=== PATIENT | female | born 1940 | race Caucasian/White ===

== ENCOUNTER → 2019-08-17 11:30 | Outpatient (POV) | payer MEDICARE, OTHER, SELFPAY ==
[2019-08-17 12:00] VITALS: BP 126/70; PULSE 73; RESP 18; O2SAT 98; BMI 23.4
--- NOTE | 2019-08-17 12:33 | HMH.PMCON ---
Assessment and Plan (1) Compression fracture Current visit: Yes Status: Chronic Category: Medical - Assessment and plan all Dx Assessment and Plan for all problems:: My recommendation would be to obtain an MRI to see if this compression fracture is fixable. If it is we will move forward with a kyphoplasty at the L2 level. Patient does have osteopenia, osteoporosis. Patient will be given a back brace after her MRI. I would recommend increasing the patient's [place] to 4 times a day until she has her kyphoplasty. Dr. Garcia has reviewed this note and agrees with this plan of care. This note was dictated using voice recognition software and may contain errors or omissions HPI - Data of Consult Consult date: 08/17/19 Requesting Physician: Benita Copeland APRN Primary Care Provider: Chad Costa MD - Consult Narrative Reason for consult: Back pain History of present illness: Ms. Hirsch is a 79 year old female who presents today for consultation regards to her back pain. Patient states that several months ago that she was fully functional and had no issues compared to what she is functioning at now. She is currently in a long-term. She has back pain that goes down into her lower spine and up into her upper spine with some radiation. Patient has some imaging showing a L2 compression fracture with 50% decreased height and vertebrae. Patient does not have an updated MRI we discussed back brace, updated MRI and potential kyphoplasty she would like to move forward with this. She is not on any anticoagulation therapy. She rates her pain today at 10 out of 10 CC: Benita Copeland APRN [facility] History I have reviewed the patient's past medical history: Yes *Have you ever received a pneumonia vaccine?: Yes *Have you received a flu vaccine this season?: Yes Other Medical History: Reports: Hypothyroidism - *Social History Smoking Status: Never smoker Alcohol Intake: never *Occupational Status:: other Housing: house Household Members: other *Travel in the last 8 weeks: None Family Hx:: Unable to obtain Review of Systems - Review of Systems ROS General: no recent weight change, no fever, no sleep disturbances Respiratory: no cough, no shortness of air, no recurring pulmonary infections Cardiovascular/Peripheral Vascular: No chest pain, No palpitations, no edema, no shortness of breath. Gastrointestinal: no new onset incontinence, normal bowel movements reported Genitourinary: no new onset incontinence Musculoskeletal: Back pain Psychiatric: normal mood/ affect Neurological: [denies new onset weakness in extremities], [denies new onset balance issues] Meds Allergies Allergy/AdvReac Type Severity Reaction Status Date / Time atorvastatin [From Lipitor] Allergy Intermediate SWELLING Unverified 07/29/17 14:21 methocarbamol [From Robaxin] Allergy Mild BREAKOUT Unverified 07/29/17 14:21 Sulfa (Sulfonamide Allergy Mild BREAKOUT Unverified 07/29/17 14:21 Antibiotics) Objective Vital signs: Pulse Resp BP Pulse Ox 73 18 126/70 98 08/17/19 12:00 08/17/19 12:00 08/17/19 12:00 08/17/19 12:00 Narrative: Physical Exam General: Alert and oriented x3, no acute distress, pleasant and cooperative, [on room air] Lungs: Resps E/U, Symmetrical chest expansion, Eyes: PERRL Musculoskeletal: Flexion and extension of lumbar spine somewhat guarded secondary to pain, deep tendon reflexes normal, strength in upper and lower extremities [5/5], [abnormal gait noted] Neurological: speech clear, clin nurse spec equal, no gross sensory deficits Opioid Risk Tool - Opioid Risk Tool-Female Family hx alcohol abuse: N Family hx illegal drugs: N Family hx rx drug abuse: N Personal hx alcohol abuse: N Personal hx illegal drugs: N Personal hx rx drug abuse: N Age: 45+ Hx of sexual abuse: N Mental health issues-ADD,OCD,Bipolar, etc: N Hx of depression: N Female Risk Score: 0
== END ==
PROVIDERS: PCP Internal Medicine Adolescent Medicine; Visit Provider Clinical Nurse Specialist Family Health
DX: M80.88XA Other osteoporosis with current pathological fracture, vertebra(e), initial encounter for fracture (principal); M85.80 Other specified disorders of bone density and structure, unspecified site
CPT/HCPCS: 99202

== ENCOUNTER → 2019-08-20 12:45 | Outpatient (CLI) | payer MEDICARE, OTHER, SELFPAY ==
--- NOTE | 2019-08-20 12:48 | MR_ITS ---
PROCEDURE: MR LUMBAR SPINE WO CON CLINICAL INDICATION: BACK PAIN The back pain, stiffness and back, unable to walk and stand COMPARISON: No exams were available for comparison TECHNIQUE: Standard multiplanar multiecho sequences are performed without contrast. 3-D MIP and myelographic images are also rendered and reviewed FINDINGS: There is normal alignment. The spinal cord ends at the T12-L1 level. There is multilevel degenerative disc disease. T10-T11: Mild degenerative disc disease. T11-T12: Mild degenerative disc disease. T12-L1: Mild degenerative disc disease. L1-L2: There is mild wedging of the central and anterior aspect of L2 with loss of height of approximately 30-40 percent. This however does appear old. L2-L3: Mild bulging disc. There is mild compression of the superior endplate of L3 with loss of height centrally of approximately 25 percent with increased T2 signal along the superior endplate and mild retropulsion of the posterior superior aspect of the L3 vertebral body by approximately 4 mm. There is mild bilateral foraminal narrowing. No canal stenosis or neural impingement. L3-L4: Nonspecific increased T2 signal is present within the L3-L4 disc suggesting underlying edema. There is mild compression change along the superior endplate of L4 which appears acute with bone marrow edema along the superior endplate of L4 and minimal retrolisthesis of the posterior superior aspect of L4 by approximately 2-3 mm. No impingement. There is mild left foraminal narrowing L4-5: Degenerative disc disease. L5-S1: Degenerate disc disease with mild bulging of the disc and mild right foraminal narrowing. Incidental note is made of small bilateral renal cysts. No extruded herniated disc is evident. IMPRESSION: Abnormal MRI of the lumbar spine. There is multilevel degenerative disc disease with bulging disc along with facet ligamentum hypertrophy.. There is mild chronic compression change at L2 and mild acute compression changes of the L3 and L4 vertebral body superiorly with mild retropulsion of the posterior superior aspect of L3 of 4 mm and L2 of 2-3 mm. Please see above for detailed description at each level Dictated by: Roger Stinson MD 08/22/2019 10:29 Electronically signed by Roger Stinson MD in [place] 08/22/2019 10:29
== END ==
PROVIDERS: PCP Internal Medicine Adolescent Medicine; Visit Provider Clinical Nurse Specialist Family Health
DX: M54.5 Low back pain (principal)
CPT/HCPCS: 72148; 76376

== ENCOUNTER → 2019-09-13 12:58 | Outpatient (POV) | payer MEDICARE, MEDICAID, OTHER, SELFPAY ==
[2019-09-13 13:15] VITALS: BP 134/74; PULSE 64; RESP 18; O2SAT 99; BMI 23.4
--- NOTE | 2019-09-13 13:39 | HMH.PAINSOAP ---
[facility] Pain Management SOAP Note Subjective:: Patient is a pleasant 79-year-old white female who presents today for follow-up after an L3 and L4 balloon kyphoplasty. Patient rates her pain a 10 out of 10 in her lower back and in her legs. She is been to the emergency room secondary to pain however she does not seem to get much relief with oral narcotics. Patient had a long discussion about intrathecal therapy she is interested in pursuing this. I do believe a bupivacaine pump may be beneficial for her given her advanced age. We will set her up for a trial. Patient questions were answered. We will set her up for a intrathecal pain pump trial. She rates her pain a 10 out of 10 ROS General: no recent weight change, no fever, no sleep disturbances Respiratory: no cough, no shortness of air, no recurring pulmonary infections Cardiovascular/Peripheral Vascular: No chest pain, No palpitations, no edema, no shortness of breath. Gastrointestinal: no new onset incontinence, normal bowel movements reported Genitourinary: no new onset incontinence Musculoskeletal: Back pain, leg pain Psychiatric: normal mood/ affect, Neurological: [denies new onset weakness in extremities], [denies new onset balance issues] Objective:: Physical Exam General: Alert and oriented x3, no acute distress, pleasant and cooperative, [on room air] Lungs: Resps E/U, Symmetrical chest expansion, Eyes: PERRL Musculoskeletal: Flexion and extension of lumbar spine somewhat guarded secondary to pain, deep tendon reflexes normal, strength in upper and lower extremities [5/5], [abnormal gait noted] Neurological: speech clear, flight communications operator equal, no gross sensory deficits Assessment:: Compression fractures, status post kyphoplasty, low back pain, degenerative changes, osteoporosis, hip pain Plan:: Patient is got no relief from either her kyphoplasty nor her an injection therapy. Patient I discussed an intrathecal pain pump trial with bupivacaine she would like to move forward with this. She rates her pain a 10 out of 10. She is not on any anticoagulation therapy. I will follow-up with her after her trial reassess her symptoms at that time she has been instructed to call the office if she has any issues prior to her next appointment. Dr. Garcia has reviewed this note and agrees with this plan of care. This note was dictated using voice recognition software and may contain errors or omissions [facility] History I have reviewed the patient's past medical history: Yes Medical History: Reports:: Anxiety, Asthma, Dementia, Gastroesophageal Reflux Disease(GERD), Hyperlipidemia, Hypertension Denies:: Cancer, Diabetes Mellitus Type 1, Diabetes Mellitus Type 2, Internal Pacemaker, MRSA, Seizures *Have you ever received a pneumonia vaccine?: Yes *Have you received a flu vaccine this season?: Yes Other Medical History: Reports: Hypothyroidism. Denies: Blood Transfusion Reaction Laterality Cases: Bilateral: Tonsillectomy Other Surgeries: Yes: Hysterectomy-Total, Sinus Surgery, Other. No: Pacemaker Amputation: No Fractures: Yes (wrist, shoulder, neck) - *Social History Smoking Status: Never smoker Alcohol Intake: never Substance Use Type: denies use *Occupational Status:: other Housing: assisted living facility Household Members: other *Travel in the last 8 weeks: None - Psychiatric History Pschychiatric History:: Reports:: Anxiety Family Hx:: Cancer, Diabetes, Hyperlipidemia, Hypertension
== END ==
PROVIDERS: PCP Internal Medicine Adolescent Medicine; Visit Provider Clinical Nurse Specialist Family Health
DX: M80.88XA Other osteoporosis with current pathological fracture, vertebra(e), initial encounter for fracture (principal); M85.80 Other specified disorders of bone density and structure, unspecified site; M54.5 Low back pain; M25.559 Pain in unspecified hip; M19.90 Unspecified osteoarthritis, unspecified site; Z98.890 Other specified postprocedural states
CPT/HCPCS: 99212

== ENCOUNTER → 2019-10-07 09:54 | Outpatient (POV) | payer MEDICARE, MEDICAID, OTHER, SELFPAY ==
[2019-10-07 10:47] VITALS: BP 140/51; PULSE 72; RESP 18; O2SAT 98; BMI 21.4
--- NOTE | 2019-10-07 10:57 | P.CONS_ITS ---
[facility] Pain Management SOAP Note Subjective:: Patient is a pleasant 79-year-old white female who presents today for follow-up after intrathecal pain pump placement. She is being treated for degenerative disc disease lumbar spine with multiple compression fractures. Patient rates her pain a 4 out of 10 today. She says she is doing well overall since having her intrathecal pump placed. She denies any side effects to the medications. She says that she feels better than she has in years with regards to pain. She is currently on bupivacaine at 2.5 mg/day. Patient says that she is having some incisional pain, however, expect that to reside over the next few weeks. Review of Systems General: No recent weight changes, no fever, no sleep disturbances Respiratory: No cough, no shortness of air, no recurring pulmonary infections Cardiovascular/peripheral vascular: No chest pain, no palpitations, no edema, no shortness of breath Gastrointestinal: No new onset incontinence, normal bowel movements reported Genitourinary: No new onset incontinence Musculoskeletal: Low back pain Psychiatric: Normal mood/affect Neurological: [Denies weakness in extremities], [denies balance issues] Objective:: Physical exam General: Alert and oriented x3, no acute distress, pleasant and cooperative, [on room air] Lungs: Respirations even and unlabored, symmetrical chest expansion Eyes: PERRL Musculoskeletal: Flexion and extension of lumbar spine somewhat guarded secondary to pain, deep tendon reflexes normal, strength in upper and lower extremities [5/5], [abnormal gait noted] Neurological: Speech clear, internal medicine doctor equal, no gross sensory deficit Assessment:: Degenerative disc disease lumbar spine with lumbar radiculopathy symptoms, multiple compression fractures Plan:: We will see the patient back in the clinic in 2 weeks to reassess her symptoms. Overall, her incision looks good. She does not have any redness, edema, or drainage noted to site. Her sutures are we will see her back in the clinic in 2 weeks to reassess her symptoms and remove her sutures. Patient's Lázaro #[id number] has been reviewed and is appropriate. Her urine drug screens are appropriate. Patient's morphine equivalent is 0. [facility] History I have reviewed the patient's past medical history: Yes Medical History: Reports:: Anxiety, Asthma, Dementia, Gastroesophageal Reflux Disease(GERD), Hyperlipidemia, Hypertension Denies:: Cancer, Diabetes Mellitus Type 1, Diabetes Mellitus Type 2, Internal Pacemaker, MRSA, Seizures *Have you ever received a pneumonia vaccine?: Yes *Have you received a flu vaccine this season?: Yes Other Medical History: Reports: Hypothyroidism. Denies: Blood Transfusion Reaction Laterality Cases: Bilateral: Tonsillectomy Other Surgeries: Yes: Hysterectomy-Total, Sinus Surgery, Other (kyphoplasty). No: Pacemaker Amputation: No Fractures: Yes (wrist, shoulder, neck) - *Social History Smoking Status: Never smoker Alcohol Intake: never Substance Use Type: denies use *Occupational Status:: other Housing: shelter Household Members: children *Travel in the last 8 weeks: None - Psychiatric History Pschychiatric History:: Reports:: Anxiety Family Hx:: Cancer, Diabetes, Hyperlipidemia, Hypertension
== END ==
PROVIDERS: PCP Internal Medicine Adolescent Medicine; Visit Provider Clinical Nurse Specialist Family Health
DX: M51.16 Intervertebral disc disorders with radiculopathy, lumbar region (principal); M80.88XA Other osteoporosis with current pathological fracture, vertebra(e), initial encounter for fracture
CPT/HCPCS: 99212

== ENCOUNTER → 2019-10-29 12:13 | Outpatient (CLI) | payer MEDICARE, MEDICAID, OTHER, SELFPAY ==
--- NOTE | 2019-10-29 12:23 | XR_ITS ---
PROCEDURE: XR MULTIPLE SPINE 6+V CLINICAL INDICATION: BACK PAIN COMPARISON: CT LUMBAR SPINE WO CON from 09/12/2019 FINDINGS: Thoracic spine: Generalized osteopenia with minimal upper thoracic curvature convex right. No acute fracture or dislocation evident. Lumbar spine: Severe generalized osteopenia with mild lumbar curvature convex left. There has been prior vertebroplasty at L3 and L4. Epidural pain pump is present with the catheter at the T12 level. Compression deformities involve L4 L3 and L2. These were present on the previous exam of 09/12/2019 but may be slightly greater at L2 on today's exam. IMPRESSION: 1. Severe osteopenia. 2. Compression deformities of L2-L3 and L4. The wedge compression of L2 may be slightly greater compared to 09/12/2019. 3. Prior kyphoplasty at L3 and L4 Dictated by: Roger Stinson MD 10/29/2019 13:04 Electronically signed by Roger Stinson MD in [place] 10/29/2019 13:04
== END ==
PROVIDERS: PCP Internal Medicine Adolescent Medicine; Visit Provider Anesthesiology
DX: M51.36 Other intervertebral disc degeneration, lumbar region (principal)
CPT/HCPCS: 72084

== ENCOUNTER → 2019-11-02 11:29 | Outpatient (POV) | payer MEDICARE, OTHER, MEDICAID, SELFPAY ==
[2019-11-02 11:45] VITALS: BP 146/91; PULSE 79; RESP 18; O2SAT 99; BMI 25.7
--- NOTE | 2019-11-02 12:47 | P.PCN_ITS ---
- Procedure Date: 11/02/19 Time: 12:47 Anesthesiologist:: Benita Copeland APRN Complications:: None Pre-procedure Diagnosis:: Degenerative disc disease lumbar spine with lumbar radiculopathy compression fracture lumbar spine status post kyphoplasty Post-procedure Diagnosis:: Same Indications for Procedure:: Patient is a very pleasant 79-year-old white female who presents today for fo llow-up. Patient has a worsening compression fracture at L2. Her last visit she came in and we switch her to periodic flow and she did well for a day and a half. Patient has had increased pain with her bupivacaine since we have increased it from 2.5 mg a day. Patient is not getting much relief from her pain pump. She is unable to tolerate bracing. [facility] and this is beneficial. She has small superficial infection of her incisional line. This looks much improved today. She is continuing doxycycline. She rated her pain a 10 out of 10 when she arrived however she was given a bolus of 1.5 mg of bupivacaine. Her blood pressure dropped she became quite dizzy during this time she had no pain however she states that this is been happening frequently to her since she had her pain pump placed. We discussed removing the bupivacaine and turning her down today. Physical Exam General: Alert and oriented x3, no acute distress, pleasant and cooperative, [on room air] Lungs: Resps E/U, Symmetrical chest expansion, Eyes: PERRL Musculoskeletal: Flexion and extension of lumbar spine somewhat guarded secondary to pain, deep tendon reflexes normal, strength in upper and lower extremities [5/5], [abnormal gait noted] Neurological: speech clear, slice cutting machine operator equal, no gross sensory deficits Procedure Details:: Informed consent was obtained and the risk and benefits of the procedure were explained to the patient. The patient was taken to the procedure room where noninvasive monitoring was placed including noninvasive blood pressure cuff and pulse oximeter. Patient's pump was interrogated and reprogrammed. The infusion rate was changed to a constant flow of 2.5 mg of bupivacaine today. The patient tolerated the procedure well. Plan and Disposition:: We will see her back in Friday and change her medicine to Dilaudid 1 mg/mL and start 0.1 mg/day she is been instructed to call the office if she has any issues prior to her next appointment. Dr. Garcia has reviewed this note and agrees with this plan of care. This note was dictated using voice recognition software and may contain errors or omissions
== END ==
PROVIDERS: PCP Internal Medicine Adolescent Medicine; Visit Provider Clinical Nurse Specialist Family Health
DX: M51.16 Intervertebral disc disorders with radiculopathy, lumbar region (principal); M48.56XA Collapsed vertebra, not elsewhere classified, lumbar region, initial encounter for fracture; I95.9 Hypotension, unspecified
CPT/HCPCS: 62368

== ENCOUNTER 2020-01-04 13:32 | Day surgery (SDC) | payer MEDICARE, OTHER, MEDICAID, SELFPAY ==
[2020-01-04 13:45] VITALS: BP 107/70; PULSE 90; RESP 18; TEMP 36.6; O2SAT 95; BMI 22.6
[2020-01-04 14:37] VITALS: BP 110/71; PULSE 99; RESP 18
[2020-01-04 14:38] VITALS: BP 112/75; PULSE 75; RESP 18; O2SAT 98
[2020-01-04 14:45] VITALS: BP 122/64; PULSE 90; RESP 18; O2SAT 95
--- NOTE | 2020-01-04 15:05 | HMH.PMPROC ---
- Procedure Date: 01/04/20 Time: 15:05 Anesthesiologist:: Benita Copeland APRN Complications:: None Pre-procedure Diagnosis:: Degenerative disc disease lumbar spine lumbar radiculopathy, compression fracture lumbar spine status post kyphoplasty acute lumbar fracture L3-L4 Post-procedure Diagnosis:: Same Indications for Procedure:: Patient is a very pleasant 79-year-old white female who presents today for intrathecal pain pump refill and reprogram. She rates her pain a 10 out of 10. She is currently on Percocet. She was unable to come to get her adjustments once she started on her Dilaudid versus bupivacaine due to the [place] crisis. We will change her out today and double her current daily dose. [facility] #[id number] reviewed. Physical Exam General: Alert and oriented x3, no acute distress, pleasant and cooperative, [on room air] Lungs: Resps E/U, Symmetrical chest expansion, Eyes: PERRL Musculoskeletal: Flexion and extension of lumbar spine somewhat guarded secondary to pain, deep tendon reflexes normal, strength in upper and lower extremities [5/5], [abnormal gait noted] Neurological: speech clear, quality control auditor equal, no gross sensory deficits Procedure Details:: Informed consent was obtained and the risk and benefits of the procedure were explained to the patient. The patient was taken to the procedure room where noninvasive monitoring was placed including noninvasive blood pressure cuff and pulse oximeter. Patient's pump was interrogated. The area over the pump was cleansed with chlorhexidine as a cleansing solution. In sterile fashion the pump was accessed with a 22-gauge needle. Approximately 13 mL's were removed of the pump solution and discarded appropriately. The pump was then refilled with 20 mL's of hydromorphone 1 mg/mL. The needle was withdrawn and a bandage was placed over the puncture site. The infusion rate was reprogrammed to 0.2 mg/day. The patient tolerated the procedure well. Plan and Disposition:: We will see the patient back in the office in 2 weeks reassess her symptoms at that time and increase her by 100% until she gets pain relief. Dr. Garcia has reviewed this note and agrees with this plan of care. This note was dictated using voice recognition software and may contain errors or omissions
== END 2020-01-04 14:45 | disposition home or self-care (01) ==
LOC: SC.PAINP 13:34
PROVIDERS: PCP Internal Medicine Adolescent Medicine; Visit Provider Clinical Nurse Specialist Family Health
DX: M51.16 Intervertebral disc disorders with radiculopathy, lumbar region (principal); M80.88XA Other osteoporosis with current pathological fracture, vertebra(e), initial encounter for fracture; Z98.890 Other specified postprocedural states; M84.48XA Pathological fracture, other site, initial encounter for fracture; Z97.8 Presence of other specified devices; E78.5 Hyperlipidemia, unspecified; J45.909 Unspecified asthma, uncomplicated; F41.9 Anxiety disorder, unspecified; F32.9 Major depressive disorder, single episode, unspecified; Z87.09 Personal history of other diseases of the respiratory system; Z87.39 Personal history of other diseases of the musculoskeletal system and connective tissue; Z90.710 Acquired absence of both cervix and uterus
CPT/HCPCS: 62370

== ENCOUNTER 2020-01-14 11:12 | Day surgery (SDC) | payer MEDICARE, OTHER, MEDICAID, SELFPAY ==
--- NOTE | 2020-01-14 11:18 | HMH.PMPROC ---
- Procedure Date: 01/14/20 Time: 11:18 Anesthesiologist:: Gary Garcia MD Complications:: None Pre-procedure Diagnosis:: Sacroiliitis Post-procedure Diagnosis:: Same Indications for Procedure:: This patient is a pleasant 79-year-old white female who we have been treating for low back pain with multiple compression fractures throughout the lumbar spine. She does have an intrathecal Dilaudid pain pump in place. She is currently going to 0.2 mg/day. She is in a care facility but is also monitoring her pain symptoms and giving her Percocet 3 times a day. None of this seems to be helping. She did not get any benefit from her intrathecal Dilaudid pain pump increase at her last visit where she went from 0.1 to 0.2 mg/day. Most of her pain is in the low back. She is tender over both SI joints. She is also tender over both trochanteric bursa's. I believe she would benefit from bilateral SI joint injections and in the future bilateral trochanteric bursa injections. We will do bilateral SI joint injections under fluoroscopy today. She has a positive SI joint compression test. She has a positive Sherrill's test bilaterally. She has a positive Ana Cristina test bilaterally. Procedure Details:: B/L SI joint injection under fluoroscopy Informed consent was obtained and the risks and benefits of the procedure was explained to the patient. The patient was taken to the procedure room and placed prone on the procedure table. The patient was prepped using ChloraPrep. The skin and subcutaneous tissues overlying the SI joints were anesthetized using lidocaine. I placed a 22-gauge needle first in the left SI joint and second in the right SI joint. Needle placement was confirmed with dye. After this we injected 5 mL bupivacaine 0.25% and Depo-Medrol 40 mg into each SI joint. Patient tolerated the procedure well with no complication. Plan and Disposition:: We will follow-up with her in 1 to 2 weeks. We will plan on bilateral trochanteric bursa injections under fluoroscopy. We will continue her intrathecal pain pump at 0.2 mg/day. They can continue to monitor her pain and give her Percocet as needed.
[2020-01-14 11:22] VITALS: BP 116/69; PULSE 78; RESP 18; O2SAT 91; BMI 22.3
[2020-01-14 11:50] VITALS: BP 118/65; BP 120/78; PULSE 85; PULSE 88; RESP 18; O2SAT 97; O2SAT 98
[2020-01-14 12:00] VITALS: BP 129/76; PULSE 82; RESP 20; O2SAT 96
== END 2020-01-14 12:00 | disposition home or self-care (01) ==
LOC: SC.PAIN 11:16
PROVIDERS: Visit Provider Anesthesiology
DX: M46.1 Sacroiliitis, not elsewhere classified (principal)
CPT/HCPCS: 27096; G0260; J1030; Q9966

== ENCOUNTER → 2020-02-04 12:56 | Day surgery (SDC) | payer MEDICARE, OTHER, MEDICAID, SELFPAY ==
[2020-02-04 13:27] VITALS: BP 111/78; PULSE 80; RESP 16; TEMP 36.1; O2SAT 92; BMI 22.6
--- NOTE | 2020-02-04 13:42 | HMH.PMPROC ---
- Procedure Date: 02/04/20 Time: 13:42 Anesthesiologist:: Gary Garcia MD Complications:: None Pre-procedure Diagnosis:: Bilateral trochanteric bursitis Post-procedure Diagnosis:: Same Indications for Procedure:: Patient is a pleasant 79-year-old white female who we are treating for low back pain and compression fractures throughout the lumbar spine. She does have pain over both hips. She is tender over both trochanteric bursa's. We will do bilateral trochanteric bursa injection today to see if this will help with her pain symptoms. She did recently have bilateral SI joint injections which have helped. Procedure Details:: My bilateral trochanteric bursa injection Informed consent was obtained and the risk and benefits of the procedure was explained to the patient. The patient was taken to the procedure room and placed prone on the procedure table. Both hips were prepped using ChloraPrep. The skin and subcutaneous tissues were anesthetized using lidocaine. A 22-gauge spinal needle was inserted and advanced into the greater trochanter on the left side. Needle placement was confirmed with dye. We then injected 5 mL bupivacaine 0.25% Depo-Medrol 40 mg into the left trochanteric bursa. The same was done for the right side. A 22-gauge spinal needle was inserted and advanced into the greater trochanter on the right side. Needle placement was confirmed with dye. We then injected 5 mL bupivacaine 0.25% Depo-Medrol 40 mg into the right trochanteric bursa. Patient tolerated the procedure well with no complications. Plan and Disposition:: She is having increasing pain over her right hip. On fluoroscopic x-ray there does appear to be a possible fracture. We will send for hip x-rays in particular of the right hip to rule out right hip fracture. This is where most of her pain is coming from.
[2020-02-04 13:50] VITALS: BP 132/85; PULSE 79; RESP 18
[2020-02-04 13:51] VITALS: BP 140/78; PULSE 85; RESP 18; O2SAT 99
--- NOTE | 2020-02-04 14:13 | XR_ITS ---
PROCEDURE: XR HIP RT 2-3V W/PELVIS CLINICAL INDICATION: questionable fracture COMPARISON: XR HIP RT 2-3V W/PELVIS from 08/27/2019 FINDINGS: No fracture or dislocation is evident. No significant degenerative change. No lytic or blastic change. Unremarkable soft tissues.Left lower quadrant generator and bilateral L5 kyphoplasty is noted. There are dense vascular calcifications IMPRESSION: No fracture Note: If a subtle fracture suspected an MR scan recommended. Dictated by: Augusto Middleton 02/04/2020 15:25 Electronically signed by Augusto Middleton in [place] 02/04/2020 15:25
[2020-02-04 14:20] VITALS: BP 137/79; PULSE 78; RESP 18; TEMP 35.8; O2SAT 92
== END ==
PROVIDERS: PCP Internal Medicine Adolescent Medicine; Visit Provider Anesthesiology
DX: M70.61 Trochanteric bursitis, right hip (principal); M70.62 Trochanteric bursitis, left hip; I10 Essential (primary) hypertension; M81.0 Age-related osteoporosis without current pathological fracture; E78.5 Hyperlipidemia, unspecified; J44.9 Chronic obstructive pulmonary disease, unspecified; Z87.448 Personal history of other diseases of urinary system; F41.9 Anxiety disorder, unspecified; F32.9 Major depressive disorder, single episode, unspecified; Z90.89 Acquired absence of other organs; Z90.710 Acquired absence of both cervix and uterus; Z83.3 Family history of diabetes mellitus
CPT/HCPCS: 20610; 73502; 77002; J1030; Q9966

== ENCOUNTER → 2020-02-24 11:39 | Outpatient (POV) | payer MEDICARE, OTHER, MEDICAID, SELFPAY ==
[2020-02-24 11:58] VITALS: BP 129/61; PULSE 81; RESP 18; O2SAT 98; BMI 22.8
--- NOTE | 2020-02-24 12:37 | P.PCN_ITS ---
- Procedure Date: 02/24/20 Time: 12:38 Anesthesiologist:: Mallika Oliver APRN Complications:: None Pre-procedure Diagnosis:: Degenerative disc disease lumbar spine with lumbar radiculopathy symptoms, bilateral trochanteric bursitis Post-procedure Diagnosis:: Same Indications for Procedure:: Patient is a pleasant 80-year-old white female who presents today for follow-up after bilateral trochanteric bursa injections. Patient continues to have low back pain. She does say the injections did give her relief in her bilateral hips, however, she is continuing to have low back pain. She does have an intrathecal pain pump with Dilaudid at 0.2 mg/day. She would like an increase in her dose today. The patient's rating her pain today a 7 out of 10. Her urine drug screens have been appropriate. Her morphine equivalent is 0. Her Lázaro #[id number] has been reviewed and is appropriate. We will increase her today to see if she gets relief. Physical exam General: Alert and oriented x3, no acute distress, pleasant and cooperative, [on room air] Lungs: Respirations even and unlabored, symmetrical chest expansion Eyes: PERRL Musculoskeletal: Flexion and extension of lumbar spine somewhat guarded secondary to pain, deep tendon reflexes normal, strength in upper and lower extremities [5/5], [abnormal gait noted] Neurological: Speech clear, privacy analyst equal, no gross sensory deficit Procedure Details:: Informed consent was obtained and the risk and benefits of the procedure were explained to the patient. Patient was taken to the procedure room where noninvasive monitoring was placed including noninvasive blood pressure cuff and pulse oximeter. Patient's pump was interrogated and was reprogrammed to Dilaudid at 0.26 mg/day. The patient tolerated the procedure well with no complications. Plan and Disposition:: Patient was given a bolus of 0.025 mg while in the clinic. She tolerated the bolus without any problems. She was given additional bolus of 0.025 mg. She was increased to 0.26 mg/day with Dilaudid. We will plan to see the patient back in the clinic in 2 weeks to reassess her symptoms. If the patient is doing well at that time she can return at her refill date. She has been instructed to contact the clinic if she has any concerns before next appointment. The patient and I specifically discussed risk factors for COVID19. These risks include, but are not limited to age greater than 60, heart or lung disease, diabetes, immunosuppression, and travel. We also discussed NSAIDs may worsen COVID19 infection or symptoms. Patient should not use NSAIDs to treat COVID19 signs or symptoms. Patient was also informed that any type of corticosteroid of any form (oral or injection) will decrease the patient's immune system response and may increase the likelihood of COVID19 infection and symptoms[address] Dr. Garcia has reviewed this note and agrees with this plan of care. This note was dictated using voice recognition software and make contain errors or omissions.
== END ==
PROVIDERS: PCP Internal Medicine Adolescent Medicine; Visit Provider Clinical Nurse Specialist Family Health
DX: M51.16 Intervertebral disc disorders with radiculopathy, lumbar region (principal); M70.62 Trochanteric bursitis, left hip; M70.61 Trochanteric bursitis, right hip
CPT/HCPCS: 62368

== ENCOUNTER 2020-03-24 12:23 | Day surgery (SDC) | payer MEDICARE, OTHER, MEDICAID, SELFPAY ==
[2020-03-24 12:34] VITALS: BP 113/71; PULSE 85; RESP 18; TEMP 36.6; O2SAT 82; BMI 22.1
[2020-03-24 13:25] VITALS: BP 127/75; PULSE 85; RESP 18
--- NOTE | 2020-03-24 13:26 | [facility].PMPROC ---
- Procedure Date: 03/24/20 Time: 13:26 Anesthesiologist:: Gary Garcia MD Complications:: None Pre-procedure Diagnosis:: Generative disc disease of lumbar spine with lumbar radiculopathy symptoms Post-procedure Diagnosis:: Same Indications for Procedure:: Patient is a pleasant 80-year-old white female who we are treating for low back pain with lumbar radicular symptoms. She has an intrathecal Dilaudid pain pump in place going at 0.26 mg/day. She is having some increasing pain and stiffness today. She says it has been occurring more often than not. We will refill her intrathecal pain pump today. We will also increase her intrathecal Dilaudid dose to 0.28 mg/day. Her Lázaro and urine drug screen are all appropriate Lázaro [id number]. She is an antalgic gait. Motor strength of lower extremities is 5/5. There is no gross sensory deficit. Procedure Details:: Pain pump refill informed consent was obtained and the risks and benefits of the procedure was explained to the patient. The patient was taken to the procedure room. The pump was interrogated. The area over the pump was prepped using ChloraPrep. The pump was accessed with a 22-gauge needle. Approximately 2 mL's of the intrathecal solution was withdrawn and discarded. The pump was then refilled with 20 mL's of intrathecal Dilaudid 1 mg/mL. The pump was interrogated and the infusion was increased to 0.28 mg/day. The patient tolerated the procedure well with no complication. Plan and Disposition:: We will follow-up with her her next pump refill. She has any problems or questions she is to call us back in the pain clinic.
[2020-03-24 13:30] VITALS: BP 128/78; PULSE 78; RESP 18; O2SAT 90
[2020-03-24 13:46] VITALS: BP 137/83; PULSE 78; RESP 16; O2SAT 88
== END 2020-03-24 13:48 | disposition home or self-care (01) ==
PROVIDERS: PCP Internal Medicine Adolescent Medicine; Visit Provider Anesthesiology
DX: M51.16 Intervertebral disc disorders with radiculopathy, lumbar region (principal); M81.0 Age-related osteoporosis without current pathological fracture; I10 Essential (primary) hypertension; J44.9 Chronic obstructive pulmonary disease, unspecified; F41.9 Anxiety disorder, unspecified; F32.9 Major depressive disorder, single episode, unspecified; Z90.89 Acquired absence of other organs; Z88.2 Allergy status to sulfonamides; Z88.8 Allergy status to other drugs, medicaments and biological substances; Z79.899 Other long term (current) drug therapy
CPT/HCPCS: 95991

== ENCOUNTER 2020-05-12 13:41 | Day surgery (SDC) | payer MEDICARE, OTHER, MEDICAID, SELFPAY ==
[2020-05-12 13:44] VITALS: PULSE 77; RESP 18; TEMP 36.6; BMI 19.3
[2020-05-12 13:59] VITALS: BP 126/73; PULSE 74; RESP 18; O2SAT 90
--- NOTE | 2020-05-12 14:09 | [facility].PMPROC ---
- Procedure Date: 05/12/20 Time: 14:09 Anesthesiologist:: Gary Garcia MD Complications:: None Pre-procedure Diagnosis:: Degenerative disc disease of lumbar spine with lumbar radiculopathy symptoms Post-procedure Diagnosis:: Same Indications for Procedure:: This patient is a pleasant 80-year-old white female who we are treating for low back pain with lumbar radiculopathy symptoms. She currently has an intrathecal Dilaudid pain pump in place going at 0.28 mg/day. She is doing well at this dose. She is seen in a wheelchair. Motor strength of the lower extremities is 5/5. There is no gross sensory deficit. Lázaro and urine drug screen are all appropriate [id number]. We will refill her pump and continue her at 0.28 mg/day. Procedure Details:: Pain pump refill informed consent was obtained and the risks and benefits of the procedure was explained to the patient. The patient was taken to the procedure room. The pump was interrogated. The area over the pump was prepped using ChloraPrep. The pump was accessed with a 22-gauge needle. Approximately 6 mL's of the intrathecal solution was withdrawn and discarded. The pump was then refilled with 20 mL's of intrathecal Dilaudid 2 mg/mL. The pump was interrogated and the infusion was continued at 0.28 mg/day.The patient tolerated the procedure well with no complication. Plan and Disposition:: We will follow-up with her at her next pump refill.
[2020-05-12 14:17] VITALS: BP 125/74; PULSE 85; RESP 18; O2SAT 92
[2020-05-12 14:35] VITALS: BP 110/73; PULSE 76; RESP 20; O2SAT 91
== END 2020-05-12 14:35 | disposition home or self-care (01) ==
LOC: SC.PAINP 13:42
PROVIDERS: PCP Internal Medicine Adolescent Medicine; Visit Provider Anesthesiology
DX: M51.16 Intervertebral disc disorders with radiculopathy, lumbar region (principal); E03.9 Hypothyroidism, unspecified; J44.9 Chronic obstructive pulmonary disease, unspecified; M81.0 Age-related osteoporosis without current pathological fracture; K21.9 Gastro-esophageal reflux disease without esophagitis; Z90.89 Acquired absence of other organs; M80.88XA Other osteoporosis with current pathological fracture, vertebra(e), initial encounter for fracture; Z88.2 Allergy status to sulfonamides; Z88.8 Allergy status to other drugs, medicaments and biological substances; Z79.899 Other long term (current) drug therapy
CPT/HCPCS: 95991